=== PATIENT | female | born 1960 | race Caucasian/White ===

== ENCOUNTER 2020-11-06 20:31 | Inpatient (IN) | payer OTHER ==
[~2020-11-06] VITALS: Ht 160 cm; Wt 75.3 kg
[~2020-11-06 20:31] MED LIST: GLUCOTROL10 MG PO; LASIX20 MG PO; METFORMIN HCL500 MG PO; TRENTAL; VASOTEC20 MG PO
[2020-11-06] MEDS ORDERED: HUMULIN N100 UNIT/2 SQ (21:08)
[2020-11-06] MEDS ORDERED: METFORMIN HCL1000 M2 PO (21:08)
[2020-11-13] MEDS ORDERED: CEFDINIR300 MG PO (15:42)
[2020-11-13] MEDS ORDERED: AZITHROMYCIN500 M2 PO (15:42)
[2020-11-13] MEDS ORDERED: METOPROLOL TART50 MG PO (15:45)
[2020-11-13] MEDS ORDERED: INTESTINEX680 M1 PO (15:51)
[2020-11-13] MEDS ORDERED: LANTUS SOL100 UNIT/1 SUBCUTANEO (15:51)
[2020-11-13] MEDS ORDERED: PEPCID AC20 MG PO (15:52)
[2020-11-13] MEDS ORDERED: PROAIR HFA8.5 GM IH (15:58)
[2020-11-13] MEDS ORDERED: FORTAMET1000 MG PO (16:01)
== END 2020-11-13 19:01 | disposition home or self-care (01) | DRG 195 ==
LOC: ER 20:31 → SURH 11-07 11:39 → SEC-K 11-07 11:39 → SURH 11-08 01:50
PROVIDERS: ADMIT Internal Medicine; ATTEND Internal Medicine
PROC: 4A033R1 Measurement of Arterial Saturation, Peripheral, Percutaneous Approach (ICD-10-PCS; principal; 2020-11-07)
PROC: 8E0ZXY6 Isolation (ICD-10-PCS; 2020-11-07)
PROC: 3E0F7SF Introduction of Other Gas into Respiratory Tract, Via Natural or Artificial Opening (ICD-10-PCS; 2020-11-07)
PROC: CB2YYZZ Tomographic (Tomo) Nuclear Medicine Imaging of Respiratory System using Other Radionuclide (ICD-10-PCS; 2020-11-07)
PROC: 02HV33Z Insertion of Infusion Device into Superior Vena Cava, Percutaneous Approach (ICD-10-PCS; 2020-11-10)
DX: J18.9 Pneumonia, unspecified organism (principal); Z20.822 Contact with and (suspected) exposure to COVID-19; R09.02 Hypoxemia; E11.65 Type 2 diabetes mellitus with hyperglycemia; I12.9 Hypertensive chronic kidney disease with stage 1 through stage 4 chronic kidney disease, or unspecified chronic kidney disease; E11.22 Type 2 diabetes mellitus with diabetic chronic kidney disease; N18.9 Chronic kidney disease, unspecified; E11.649 Type 2 diabetes mellitus with hypoglycemia without coma; T38.0X5A Adverse effect of glucocorticoids and synthetic analogues, initial encounter; Z88.2 Allergy status to sulfonamides; Z79.4 Long term (current) use of insulin